=== PATIENT | female | born 1990 | race Caucasian/White ===

== ENCOUNTER → 2023-10-25 11:33 | Outpatient (REF) | payer BC, SELFPAY | LOC: PET 11:33 | PROVIDERS: ATTENDING PHYSICIAN Internal Medicine Hematology & Oncology | DX: C50.312 Malignant neoplasm of lower-inner quadrant of left female breast (principal) | CPT/HCPCS: 78815; A9552 ==

== ENCOUNTER → 2023-10-29 18:03 | Outpatient (REF) | payer BC, SELFPAY ==
--- NOTE | 2023-10-30 17:41 | CARDSERVLU ---
Echocardiogram with Lumason completed after protocol screening completed. Allergies verified.
Patent IV site: __RA___
IV site flushed with 0.9% NaCl pre and post administration.
Diluted bolus method utilized to enhance visualization of ventricular olvera.
Total volume given: __4__ mL
Patient tolerated all procedures well without complications.
== END ==
LOC: RCS 18:03
PROVIDERS: ATTENDING PHYSICIAN Internal Medicine Hematology & Oncology; FAMILY PHYSICIAN Physician Assistant
DX: Z51.11 Encounter for antineoplastic chemotherapy (principal)
CPT/HCPCS: 93306; Q9950

== ENCOUNTER → 2024-02-17 10:43 | Outpatient (REF) | payer BC, SELFPAY | LOC: PET 10:43 | PROVIDERS: ATTENDING PHYSICIAN Internal Medicine Hematology & Oncology | DX: C50.312 Malignant neoplasm of lower-inner quadrant of left female breast (principal) | CPT/HCPCS: 78815; A9552 ==

== ENCOUNTER → 2024-05-15 15:50 | Outpatient (REF) | payer BC, SELFPAY | LOC: RCS 15:50 | PROVIDERS: ATTENDING PHYSICIAN Internal Medicine Hematology & Oncology; FAMILY PHYSICIAN Physician Assistant | DX: C50.312 Malignant neoplasm of lower-inner quadrant of left female breast (principal); C79.51 Secondary malignant neoplasm of bone | CPT/HCPCS: 93306 ==

== ENCOUNTER → 2024-06-04 12:09 | Outpatient (REF) | payer BC, SELFPAY | LOC: PET 12:09 | PROVIDERS: ATTENDING PHYSICIAN Internal Medicine Hematology & Oncology | DX: C50.312 Malignant neoplasm of lower-inner quadrant of left female breast (principal); C78.00 Secondary malignant neoplasm of unspecified lung; C79.51 Secondary malignant neoplasm of bone | CPT/HCPCS: 78815; A9552 ==

== ENCOUNTER → 2024-06-26 13:39 | Outpatient (REF) | payer BC, SELFPAY | LOC: RAD 13:39 | PROVIDERS: ATTENDING PHYSICIAN Internal Medicine Hematology & Oncology; FAMILY PHYSICIAN Physician Assistant | DX: C50.312 Malignant neoplasm of lower-inner quadrant of left female breast (principal); F32.9 Major depressive disorder, single episode, unspecified; C79.51 Secondary malignant neoplasm of bone | CPT/HCPCS: 71275; Q9967 ==

== ENCOUNTER → 2024-07-03 10:14 | Outpatient (REF) | payer BC, SELFPAY ==
[2024-07-03 10:34] VITALS: BP 114/83; BP_SYST 99
[2024-07-03 11:24] VITALS: BP 95/65
[2024-07-03 11:41] LABS: Body Fluid Mononuclear 98.9 %; Body Fluid Polymorphonuclear 1.1 %; Body Fluid WBC 2438 /CUMM
[2024-07-03 12:02] LABS: Body Fluid Glucose 92 mg/dl; Body Fluid LDH 155 U/L; Body Fluid Protein 4.1 g/dl
[2024-07-03 12:11] LABS: Body Fluid Second Tech HB
== END ==
LOC: RADI 10:14
PROVIDERS: ATTENDING PHYSICIAN Internal Medicine Hematology & Oncology; FAMILY PHYSICIAN Physician Assistant
DX: C50.919 Malignant neoplasm of unspecified site of unspecified female breast (principal); J91.0 Malignant pleural effusion
CPT/HCPCS: 88305; 32555; 71045; 82945; 83615; 84157; 88112; 88341; 88342; 88360; 89051

== ENCOUNTER → 2024-07-09 10:15 | Outpatient (REF) | payer BC, SELFPAY ==
[2024-07-09 10:39] VITALS: BP 124/80; BP_SYST 107
[2024-07-09 11:02] VITALS: BP 90/46; BP_SYST 83
== END ==
LOC: RADI 10:15
PROVIDERS: ATTENDING PHYSICIAN Internal Medicine Hematology & Oncology; FAMILY PHYSICIAN Physician Assistant
DX: J90 Pleural effusion, not elsewhere classified (principal)
CPT/HCPCS: 88305; 32555; 71045; 88112; 88360

== ENCOUNTER → 2024-07-16 10:18 | Outpatient (REF) | payer BC, SELFPAY ==
[2024-07-16 10:25] VITALS: BP 111/89; BP_SYST 107
== END ==
LOC: RADI 10:18
PROVIDERS: ATTENDING PHYSICIAN Internal Medicine Hematology & Oncology; FAMILY PHYSICIAN Physician Assistant
DX: C80.1 Malignant (primary) neoplasm, unspecified (principal); J91.0 Malignant pleural effusion
CPT/HCPCS: 32555; 71045

== ENCOUNTER → 2024-08-06 10:25 | Outpatient (REF) | payer BC, SELFPAY ==
[2024-08-06 10:40] VITALS: BP 122/79; BP_SYST 110
[2024-08-06 11:00] VITALS: BP 96/69; BP_SYST 92
== END ==
LOC: RADI 10:25
PROVIDERS: ATTENDING PHYSICIAN Internal Medicine Hematology & Oncology; FAMILY PHYSICIAN Physician Assistant
DX: J90 Pleural effusion, not elsewhere classified (principal)
CPT/HCPCS: 32555; 71045

== ENCOUNTER → 2024-08-13 10:37 | Outpatient (REF) | payer BC, SELFPAY ==
[2024-08-13 10:58] VITALS: BP 113/98; BP_SYST 116
[2024-08-13 11:28] VITALS: BP 111/80
== END ==
LOC: RADI 10:37
PROVIDERS: ATTENDING PHYSICIAN Internal Medicine Hematology & Oncology; FAMILY PHYSICIAN Physician Assistant
DX: J90 Pleural effusion, not elsewhere classified (principal)
CPT/HCPCS: 32555; 71045

== ENCOUNTER → 2024-08-20 09:53 | Outpatient (REF) | payer BC, SELFPAY ==
[2024-08-20 10:25] VITALS: BP 103/79; BP_SYST 104
[2024-08-20 10:50] VITALS: BP 96/59; BP_SYST 105
== END ==
LOC: RADI 09:53
PROVIDERS: ATTENDING PHYSICIAN Internal Medicine Hematology & Oncology; FAMILY PHYSICIAN Physician Assistant
DX: J90 Pleural effusion, not elsewhere classified (principal)
CPT/HCPCS: 32555; 71045

== ENCOUNTER → 2024-08-31 10:04 | Outpatient (REF) | payer BC, SELFPAY ==
[2024-08-31 10:10] VITALS: BP 103/51; BP_SYST 110
[2024-08-31 10:37] VITALS: BP 95/71; BP_SYST 94
== END ==
LOC: RADI 10:04
PROVIDERS: ATTENDING PHYSICIAN Internal Medicine Hematology & Oncology; FAMILY PHYSICIAN Physician Assistant
DX: J90 Pleural effusion, not elsewhere classified (principal)
CPT/HCPCS: 32555; 71045

== ENCOUNTER → 2024-09-04 10:16 | Outpatient (REF) | payer BC, SELFPAY ==
[2024-09-04 10:25] VITALS: BP 103/71; BP_SYST 100
== END ==
LOC: RADI 10:16
PROVIDERS: ATTENDING PHYSICIAN Internal Medicine Hematology & Oncology; FAMILY PHYSICIAN Physician Assistant
DX: J90 Pleural effusion, not elsewhere classified (principal)
CPT/HCPCS: 32555; 71045

== ENCOUNTER → 2024-09-09 09:15 | Outpatient (REF) | payer BC, SELFPAY ==
[2024-09-09 09:25] VITALS: BP 105/78; BP_SYST 103
[2024-09-09 09:45] VITALS: BP 105/79; BP_SYST 79
[2024-09-09 10:12] VITALS: BP 105/79
== END ==
LOC: RADI 09:15
PROVIDERS: ATTENDING PHYSICIAN Internal Medicine Hematology & Oncology; FAMILY PHYSICIAN Physician Assistant
DX: J90 Pleural effusion, not elsewhere classified (principal)
CPT/HCPCS: 32555; 71045

== ENCOUNTER → 2024-09-15 10:07 | Outpatient (REF) | payer BC, SELFPAY ==
[2024-09-15 10:15] VITALS: BP 113/84; BP_SYST 109
[2024-09-15 10:37] VITALS: BP 111/73; BP_SYST 83
[2024-09-15 10:48] VITALS: BP 111/73
== END ==
LOC: RADI 10:07
PROVIDERS: ATTENDING PHYSICIAN Internal Medicine Hematology & Oncology
DX: J90 Pleural effusion, not elsewhere classified (principal)
CPT/HCPCS: 32555; 71045

== ENCOUNTER → 2024-09-23 12:54 | Outpatient (REF) | payer MEDICAID, SELFPAY ==
[2024-09-23 13:20] VITALS: BP 128/76; BP_SYST 100
[2024-09-23 13:45] VITALS: BP 110/75
== END ==
LOC: RADI 12:54
PROVIDERS: ATTENDING PHYSICIAN Internal Medicine Hematology & Oncology; FAMILY PHYSICIAN Family Medicine
DX: J90 Pleural effusion, not elsewhere classified (principal)
CPT/HCPCS: 32555; 71045

== ENCOUNTER → 2024-09-28 13:03 | Outpatient (REF) | payer MEDICAID, SELFPAY ==
[2024-09-28 13:14] VITALS: BP 118/63; BP_SYST 100
[2024-09-28 13:46] VITALS: BP 100/73
== END ==
LOC: RADI 13:03
PROVIDERS: ATTENDING PHYSICIAN Internal Medicine Hematology & Oncology; FAMILY PHYSICIAN Family Medicine
DX: J90 Pleural effusion, not elsewhere classified (principal)
CPT/HCPCS: 32555; 71045

== ENCOUNTER → 2024-10-02 12:44 | Outpatient (REF) | payer MEDICAID, SELFPAY ==
[2024-10-02 13:02] VITALS: BP 101/64; BP_SYST 89
[2024-10-02 13:28] VITALS: BP 100/68; BP_SYST 88
== END ==
LOC: RADI 12:44
PROVIDERS: ATTENDING PHYSICIAN Internal Medicine Hematology & Oncology; FAMILY PHYSICIAN Family Medicine
DX: J90 Pleural effusion, not elsewhere classified (principal)
CPT/HCPCS: 32555; 71045

== ENCOUNTER → 2024-10-05 11:03 | Outpatient (REF) | payer MEDICAID, SELFPAY ==
[2024-10-05 11:12] VITALS: BP 107/80; BP_SYST 70
[2024-10-05 11:50] VITALS: BP 99/71
== END ==
LOC: RADI 11:03
PROVIDERS: ATTENDING PHYSICIAN Internal Medicine Hematology & Oncology
DX: J90 Pleural effusion, not elsewhere classified (principal)
CPT/HCPCS: 32555; 71045

== ENCOUNTER → 2024-10-08 10:56 | Outpatient (REF) | payer MEDICAID, SELFPAY ==
[2024-10-08 11:00] VITALS: BP 115/76; BP_SYST 89
[2024-10-08 11:33] VITALS: BP 107/69; BP_SYST 91
== END ==
LOC: RADI 10:56
PROVIDERS: ATTENDING PHYSICIAN Internal Medicine Hematology & Oncology
DX: J90 Pleural effusion, not elsewhere classified (principal)
CPT/HCPCS: 32555; 71045

== ENCOUNTER → 2024-10-13 10:55 | Outpatient (REF) | payer MEDICAID, SELFPAY ==
[2024-10-13 11:00] VITALS: BP 107/66; BP_SYST 105
[2024-10-13 11:43] VITALS: BP 103/69
== END ==
LOC: RADI 10:55
PROVIDERS: ATTENDING PHYSICIAN Internal Medicine Hematology & Oncology
DX: J90 Pleural effusion, not elsewhere classified (principal)
CPT/HCPCS: 32555; 71045

== ENCOUNTER → 2024-10-16 11:02 | Outpatient (REF) | payer MEDICAID, SELFPAY ==
[2024-10-16 11:20] VITALS: BP 102/74; BP_SYST 92
[2024-10-16 11:37] VITALS: BP 105/72
== END ==
LOC: RADI 11:02
PROVIDERS: ATTENDING PHYSICIAN Internal Medicine Hematology & Oncology; FAMILY PHYSICIAN Family Medicine
DX: J90 Pleural effusion, not elsewhere classified (principal)
CPT/HCPCS: 32555; 71045

== ENCOUNTER → 2024-10-19 10:24 | Outpatient (REF) | payer MEDICAID, OTHER, SELFPAY ==
[2024-10-19 10:35] VITALS: BP 110/78; BP_SYST 89
[2024-10-19 10:50] VITALS: BP 99/68; BP_SYST 87
[2024-10-19 11:00] VITALS: BP 99/68
== END ==
LOC: RADI 10:24
PROVIDERS: ATTENDING PHYSICIAN Internal Medicine Hematology & Oncology; FAMILY PHYSICIAN Family Medicine
DX: J90 Pleural effusion, not elsewhere classified (principal)
CPT/HCPCS: 32555; 71045

== ENCOUNTER → 2024-10-23 10:23 | Outpatient (REF) | payer OTHER, MEDICAID, SELFPAY ==
[2024-10-23 10:42] VITALS: BP 112/76; BP_SYST 90
[2024-10-23 11:00] VITALS: BP 103/75
== END ==
LOC: RADI 10:23
PROVIDERS: ATTENDING PHYSICIAN Internal Medicine Hematology & Oncology; FAMILY PHYSICIAN Family Medicine
DX: J90 Pleural effusion, not elsewhere classified (principal)
CPT/HCPCS: 32555; 71045

== ENCOUNTER → 2024-10-26 10:53 | Outpatient (REF) | payer OTHER, MEDICAID, SELFPAY ==
[2024-10-26 11:05] VITALS: BP 121/71; BP_SYST 95
[2024-10-26 11:25] VITALS: BP 99/67; BP_SYST 88
[2024-10-26 11:35] VITALS: BP 99/67
[2024-10-26 11:40] VITALS: BP 99/67
== END ==
LOC: RADI 10:53
PROVIDERS: ATTENDING PHYSICIAN Internal Medicine Hematology & Oncology; FAMILY PHYSICIAN Family Medicine
DX: J90 Pleural effusion, not elsewhere classified (principal)
CPT/HCPCS: 32555; 71045

== ENCOUNTER → 2024-10-29 13:25 | Outpatient (REF) | payer OTHER, MEDICAID, SELFPAY ==
[2024-10-29 13:52] VITALS: BP 104/77; BP_SYST 87
[2024-10-29 14:10] VITALS: BP 96/68
== END ==
LOC: RADI 13:25
PROVIDERS: ATTENDING PHYSICIAN Internal Medicine Hematology & Oncology
DX: J90 Pleural effusion, not elsewhere classified (principal)
CPT/HCPCS: 32555; 71045

== ENCOUNTER → 2024-11-02 10:21 | Outpatient (REF) | payer OTHER, MEDICAID, SELFPAY ==
[2024-11-02 10:35] VITALS: BP 109/76; BP_SYST 94
[2024-11-02 10:50] VITALS: BP 101/67; BP_SYST 89
[2024-11-02 11:09] VITALS: BP 101/67
== END ==
LOC: RADI 10:21
PROVIDERS: ATTENDING PHYSICIAN Internal Medicine Hematology & Oncology; FAMILY PHYSICIAN Family Medicine
DX: J90 Pleural effusion, not elsewhere classified (principal)
CPT/HCPCS: 32555; 71045

== ENCOUNTER → 2024-11-05 10:27 | Outpatient (REF) | payer OTHER, MEDICAID, SELFPAY ==
[2024-11-05 10:43] VITALS: BP 115/73; BP_SYST 98
[2024-11-05 10:56] VITALS: BP 112/68
== END ==
LOC: RADI 10:27
PROVIDERS: ATTENDING PHYSICIAN Internal Medicine Hematology & Oncology; FAMILY PHYSICIAN Family Medicine
DX: J90 Pleural effusion, not elsewhere classified (principal)
CPT/HCPCS: 32555; 71045

== ENCOUNTER → 2024-11-09 11:08 | Outpatient (REF) | payer OTHER, MEDICAID, SELFPAY ==
[2024-11-09 11:20] VITALS: BP 112/82; BP_SYST 113
[2024-11-09 11:40] VITALS: BP 107/67
== END ==
LOC: RADI 11:08
PROVIDERS: ATTENDING PHYSICIAN Internal Medicine Hematology & Oncology
DX: J90 Pleural effusion, not elsewhere classified (principal)
CPT/HCPCS: 32555; 71045

== ENCOUNTER → 2024-11-12 10:49 | Outpatient (REF) | payer OTHER, MEDICAID, SELFPAY ==
[2024-11-12 11:10] VITALS: BP 98/56
[2024-11-12 11:20] VITALS: BP 97/75
== END ==
LOC: RADI 10:49
PROVIDERS: ATTENDING PHYSICIAN Internal Medicine Hematology & Oncology; FAMILY PHYSICIAN Family Medicine
DX: J90 Pleural effusion, not elsewhere classified (principal)
CPT/HCPCS: 32555; 71045

== ENCOUNTER → 2024-11-16 10:53 | Outpatient (REF) | payer OTHER, MEDICAID, SELFPAY ==
[2024-11-16 11:05] VITALS: BP 110/73; BP_SYST 96
== END ==
LOC: RADI 10:53
PROVIDERS: ATTENDING PHYSICIAN Internal Medicine Hematology & Oncology
DX: C80.1 Malignant (primary) neoplasm, unspecified (principal); J91.0 Malignant pleural effusion
CPT/HCPCS: 88305; 32555; 71045; 88112; 88341; 88360

== ENCOUNTER → 2024-11-18 16:55 | Outpatient (REF) | payer OTHER, MEDICAID, SELFPAY | LOC: RCS 16:55 | PROVIDERS: ATTENDING PHYSICIAN Internal Medicine Hematology & Oncology; FAMILY PHYSICIAN Family Medicine | DX: C50.312 Malignant neoplasm of lower-inner quadrant of left female breast (principal); Z92.21 Personal history of antineoplastic chemotherapy; C79.51 Secondary malignant neoplasm of bone | CPT/HCPCS: 93306 ==

== ENCOUNTER → 2024-11-19 11:00 | Outpatient (REF) | payer OTHER, MEDICAID, SELFPAY ==
[2024-11-19 11:26] VITALS: BP 102/69; BP_SYST 87
[2024-11-19 12:17] VITALS: BP 91/56
== END ==
LOC: RADI 11:00
PROVIDERS: ATTENDING PHYSICIAN Internal Medicine Hematology & Oncology; FAMILY PHYSICIAN Family Medicine
DX: J90 Pleural effusion, not elsewhere classified (principal)
CPT/HCPCS: 32555; 71045

== ENCOUNTER → 2024-11-24 07:07 | Outpatient (REF) | payer OTHER, MEDICAID, SELFPAY ==
[2024-11-24 07:25] VITALS: BP 116/66; BP_SYST 95
[2024-11-24 07:55] VITALS: BP 113/64; BP_SYST 96
[2024-11-24 08:06] VITALS: BP 113/64
== END ==
LOC: RADI 07:07
PROVIDERS: ATTENDING PHYSICIAN Internal Medicine Hematology & Oncology; FAMILY PHYSICIAN Family Medicine
DX: J90 Pleural effusion, not elsewhere classified (principal); Z85.3 Personal history of malignant neoplasm of breast
CPT/HCPCS: 32555; 71045

== ENCOUNTER → 2024-11-27 06:52 | Outpatient (REF) | payer OTHER, MEDICAID, SELFPAY ==
[2024-11-27 07:05] VITALS: BP 120/62; BP_SYST 84
[2024-11-27 07:45] VITALS: BP 104/71; BP_SYST 88
== END ==
LOC: RADI 06:52
PROVIDERS: ATTENDING PHYSICIAN Internal Medicine Hematology & Oncology; FAMILY PHYSICIAN Family Medicine
DX: J90 Pleural effusion, not elsewhere classified (principal)
CPT/HCPCS: 32555; 71045

== ENCOUNTER → 2024-11-30 06:52 | Outpatient (REF) | payer OTHER, MEDICAID, SELFPAY ==
[2024-11-30 07:18] VITALS: BP 125/77; BP_SYST 89
[2024-11-30 07:33] VITALS: BP 112/77; BP_SYST 91
[2024-11-30 07:42] VITALS: BP 112/77
== END ==
LOC: RADI 06:52
PROVIDERS: ATTENDING PHYSICIAN Internal Medicine Hematology & Oncology; FAMILY PHYSICIAN Family Medicine
DX: J90 Pleural effusion, not elsewhere classified (principal)
CPT/HCPCS: 32555; 71045

== ENCOUNTER → 2024-12-03 07:04 | Outpatient (REF) | payer OTHER, MEDICAID, SELFPAY ==
[2024-12-03 07:35] VITALS: BP 119/73; BP_SYST 87
[2024-12-03 07:50] VITALS: BP 110/72
== END ==
LOC: RADI 07:04
PROVIDERS: ATTENDING PHYSICIAN Internal Medicine Hematology & Oncology
DX: J90 Pleural effusion, not elsewhere classified (principal)
CPT/HCPCS: 32555; 71045

== ENCOUNTER → 2024-12-07 06:51 | Outpatient (REF) | payer OTHER, MEDICAID, SELFPAY ==
[2024-12-07 07:12] VITALS: BP 116/85; BP_SYST 86
[2024-12-07 07:34] VITALS: BP 108/74; BP_SYST 89
[2024-12-07 07:53] VITALS: BP 108/74
== END ==
LOC: RADI 06:51
PROVIDERS: ATTENDING PHYSICIAN Internal Medicine Hematology & Oncology; FAMILY PHYSICIAN Family Medicine
DX: J90 Pleural effusion, not elsewhere classified (principal)
CPT/HCPCS: 32555; 71045

== ENCOUNTER → 2024-12-11 06:57 | Outpatient (REF) | payer BC, OTHER, SELFPAY ==
[2024-12-11 07:18] VITALS: BP 111/75; BP_SYST 99
[2024-12-11 07:32] VITALS: BP 106/57
== END ==
LOC: RADI 06:57
PROVIDERS: ATTENDING PHYSICIAN Internal Medicine Hematology & Oncology
DX: J90 Pleural effusion, not elsewhere classified (principal)
CPT/HCPCS: 32555; 71045

== ENCOUNTER → 2024-12-14 06:59 | Outpatient (REF) | payer BC, OTHER, SELFPAY ==
[2024-12-14 07:19] VITALS: BP 111/76; BP_SYST 93
== END ==
LOC: RADI 06:59
PROVIDERS: ATTENDING PHYSICIAN Internal Medicine Hematology & Oncology
DX: J90 Pleural effusion, not elsewhere classified (principal)
CPT/HCPCS: 32555; 71045

== ENCOUNTER → 2024-12-17 07:11 | Outpatient (REF) | payer BC, OTHER, SELFPAY ==
[2024-12-17 07:25] VITALS: BP 111/77; BP_SYST 90
[2024-12-17 07:42] VITALS: BP 102/69; BP_SYST 88
[2024-12-17 07:52] VITALS: BP 102/69
== END ==
LOC: RADI 07:11
PROVIDERS: ATTENDING PHYSICIAN Internal Medicine Hematology & Oncology
DX: J90 Pleural effusion, not elsewhere classified (principal)
CPT/HCPCS: 32555; 71045

== ENCOUNTER → 2024-12-21 06:58 | Outpatient (REF) | payer BC, OTHER, SELFPAY ==
[2024-12-21 07:12] VITALS: BP 110/71; BP_SYST 96
[2024-12-21 07:33] VITALS: BP 110/75
== END ==
LOC: RADI 06:58
PROVIDERS: ATTENDING PHYSICIAN Internal Medicine Hematology & Oncology
DX: J90 Pleural effusion, not elsewhere classified (principal)
CPT/HCPCS: 32555; 71045

== ENCOUNTER → 2024-12-24 07:07 | Outpatient (REF) | payer BC, OTHER, SELFPAY ==
[2024-12-24 07:25] VITALS: BP 103/74; BP_SYST 86
[2024-12-24 07:50] VITALS: BP 104/62
== END ==
LOC: RADI 07:07
PROVIDERS: ATTENDING PHYSICIAN Internal Medicine Hematology & Oncology
DX: J90 Pleural effusion, not elsewhere classified (principal)
CPT/HCPCS: 32555; 71045

== ENCOUNTER → 2024-12-28 07:08 | Outpatient (REF) | payer BC, OTHER, SELFPAY ==
[2024-12-28 07:10] VITALS: BP 123/80; BP_SYST 85
[2024-12-28 07:40] VITALS: BP 109/74; BP_SYST 80
[2024-12-28 07:48] VITALS: BP 109/74
== END ==
LOC: RADI 07:08
PROVIDERS: ATTENDING PHYSICIAN Internal Medicine Hematology & Oncology
DX: J90 Pleural effusion, not elsewhere classified (principal)
CPT/HCPCS: 32555; 71045

== ENCOUNTER → 2024-12-31 06:59 | Outpatient (REF) | payer BC, OTHER, SELFPAY ==
[2024-12-31 07:14] VITALS: BP 111/74; BP_SYST 85
[2024-12-31 07:38] VITALS: BP 108/73
== END ==
LOC: RADI 06:59
PROVIDERS: ATTENDING PHYSICIAN Internal Medicine Hematology & Oncology; FAMILY PHYSICIAN Physician Assistant
DX: J90 Pleural effusion, not elsewhere classified (principal)
CPT/HCPCS: 32555; 71045

== ENCOUNTER → 2025-01-04 06:54 | Outpatient (REF) | payer BC, OTHER, SELFPAY ==
[2025-01-04 07:10] VITALS: BP 120/77; BP_SYST 93
[2025-01-04 07:30] VITALS: BP 101/72; BP_SYST 78
[2025-01-04 07:37] VITALS: BP 101/72
== END ==
LOC: RADI 06:54
PROVIDERS: ATTENDING PHYSICIAN Internal Medicine Hematology & Oncology; FAMILY PHYSICIAN Physician Assistant
DX: J90 Pleural effusion, not elsewhere classified (principal); R06.02 Shortness of breath
CPT/HCPCS: 32555; 71045

== ENCOUNTER → 2025-01-07 07:04 | Outpatient (REF) | payer OTHER, SELFPAY ==
[2025-01-07 07:35] VITALS: BP 103/70; BP_SYST 84
[2025-01-07 08:15] VITALS: BP 96/70
== END ==
LOC: RADI 07:04
PROVIDERS: ATTENDING PHYSICIAN Internal Medicine Hematology & Oncology; FAMILY PHYSICIAN Physician Assistant
DX: J90 Pleural effusion, not elsewhere classified (principal); R06.00 Dyspnea, unspecified
CPT/HCPCS: 32555; 71045

== ENCOUNTER → 2025-01-11 07:01 | Outpatient (REF) | payer OTHER, SELFPAY ==
[2025-01-11 07:21] VITALS: BP 113/73; BP_SYST 79
[2025-01-11 08:05] VITALS: BP 113/73
== END ==
LOC: RADI 07:01
PROVIDERS: ATTENDING PHYSICIAN Internal Medicine Hematology & Oncology
DX: J90 Pleural effusion, not elsewhere classified (principal); Z85.3 Personal history of malignant neoplasm of breast
CPT/HCPCS: 32555; 71045

== ENCOUNTER → 2025-01-14 07:05 | Outpatient (REF) | payer OTHER, SELFPAY ==
[2025-01-14 07:31] VITALS: BP 107/67; BP_SYST 87
[2025-01-14 08:13] VITALS: BP 103/75
== END ==
LOC: RADI 07:05
PROVIDERS: ATTENDING PHYSICIAN Internal Medicine Hematology & Oncology; FAMILY PHYSICIAN Physician Assistant
DX: J90 Pleural effusion, not elsewhere classified (principal)
CPT/HCPCS: 32555; 71045

== ENCOUNTER → 2025-01-21 06:59 | Outpatient (REF) | payer BC, OTHER, SELFPAY ==
[2025-01-21 07:08] VITALS: BP 122/77; BP_SYST 90
[2025-01-21 07:26] VITALS: BP 108/73; BP_SYST 87
[2025-01-21 07:40] VITALS: BP 108/73
== END ==
LOC: RADI 06:59
PROVIDERS: ATTENDING PHYSICIAN Internal Medicine Hematology & Oncology
DX: J90 Pleural effusion, not elsewhere classified (principal)
CPT/HCPCS: 32555; 71045

== ENCOUNTER → 2025-01-25 07:00 | Outpatient (REF) | payer BC, OTHER, SELFPAY ==
[2025-01-25 07:12] VITALS: BP 113/76; BP_SYST 85
== END ==
LOC: RADI 07:00
PROVIDERS: ATTENDING PHYSICIAN Internal Medicine Hematology & Oncology
DX: J90 Pleural effusion, not elsewhere classified (principal); Z53.8 Procedure and treatment not carried out for other reasons
CPT/HCPCS: 76604

== ENCOUNTER → 2025-01-28 07:00 | Outpatient (REF) | payer BC, OTHER, SELFPAY ==
[2025-01-28 07:40] VITALS: BP 107/64; BP_SYST 98
[2025-01-28 08:35] VITALS: BP 107/64; BP_SYST 98
== END ==
LOC: RADI 07:00
PROVIDERS: ATTENDING PHYSICIAN Internal Medicine Hematology & Oncology; FAMILY PHYSICIAN Physician Assistant
DX: J90 Pleural effusion, not elsewhere classified (principal)
CPT/HCPCS: 32555; 71045

== ENCOUNTER → 2025-02-01 07:05 | Outpatient (REF) | payer BC, OTHER, SELFPAY ==
[2025-02-01 07:20] VITALS: BP 118/89; BP_SYST 84
[2025-02-01 07:38] VITALS: BP 104/64; BP_SYST 83
[2025-02-01 07:40] VITALS: BP 104/64; BP_SYST 83
[2025-02-01 07:55] VITALS: BP 104/64
== END ==
LOC: RADI 07:05
PROVIDERS: ATTENDING PHYSICIAN Internal Medicine Hematology & Oncology; FAMILY PHYSICIAN Physician Assistant
DX: J90 Pleural effusion, not elsewhere classified (principal)
CPT/HCPCS: 32555; 71045

== ENCOUNTER → 2025-02-11 07:21 | Outpatient (REF) | payer BC, OTHER, SELFPAY ==
[2025-02-11 07:44] VITALS: BP 118/74; BP_SYST 85
[2025-02-11 08:00] VITALS: BP 101/66
== END ==
LOC: RADI 07:21
PROVIDERS: ATTENDING PHYSICIAN Internal Medicine Hematology & Oncology; FAMILY PHYSICIAN Physician Assistant
DX: J90 Pleural effusion, not elsewhere classified (principal)
CPT/HCPCS: 32555; 71045

== ENCOUNTER → 2025-02-18 07:01 | Outpatient (REF) | payer BC, OTHER, SELFPAY ==
[2025-02-18 07:13] VITALS: BP 120/77; BP_SYST 92
[2025-02-18 07:36] VITALS: BP 115/77
== END ==
LOC: RADI 07:01
PROVIDERS: ATTENDING PHYSICIAN Internal Medicine Hematology & Oncology; FAMILY PHYSICIAN Physician Assistant
DX: J90 Pleural effusion, not elsewhere classified (principal)
CPT/HCPCS: 32555; 71045

== ENCOUNTER → 2025-02-25 07:04 | Outpatient (REF) | payer BC, OTHER, SELFPAY ==
[2025-02-25 07:40] VITALS: BP 93/80; BP_SYST 78
[2025-02-25 08:05] VITALS: BP 108/74
== END ==
LOC: RADI 07:04
PROVIDERS: ATTENDING PHYSICIAN Internal Medicine Hematology & Oncology; FAMILY PHYSICIAN Physician Assistant
DX: J90 Pleural effusion, not elsewhere classified (principal); Z85.3 Personal history of malignant neoplasm of breast
CPT/HCPCS: 32555; 71045

== ENCOUNTER → 2025-03-04 06:55 | Outpatient (REF) | payer BC, OTHER, SELFPAY ==
[2025-03-04 07:38] VITALS: BP 97/62; BP_SYST 85
[2025-03-04 07:50] VITALS: BP 92/65
== END ==
LOC: RADI 06:55
PROVIDERS: ATTENDING PHYSICIAN Internal Medicine Hematology & Oncology; FAMILY PHYSICIAN Physician Assistant
DX: J90 Pleural effusion, not elsewhere classified (principal)
CPT/HCPCS: 32555; 71045

== ENCOUNTER → 2025-03-06 09:02 | Outpatient (REF) | payer BC, OTHER, SELFPAY | LOC: RCS 09:02 | PROVIDERS: ATTENDING PHYSICIAN Internal Medicine Hematology & Oncology; FAMILY PHYSICIAN Physician Assistant | DX: R06.02 Shortness of breath (principal); R22.1 Localized swelling, mass and lump, neck; C50.312 Malignant neoplasm of lower-inner quadrant of left female breast; F32.9 Major depressive disorder, single episode, unspecified; C79.51 Secondary malignant neoplasm of bone; C78.00 Secondary malignant neoplasm of unspecified lung; R06.00 Dyspnea, unspecified; Z92.21 Personal history of antineoplastic chemotherapy; N95.1 Menopausal and female climacteric states | CPT/HCPCS: 93306 ==

== ENCOUNTER → 2025-03-11 06:57 | Outpatient (REF) | payer BC, OTHER, SELFPAY ==
[2025-03-11 07:18] VITALS: BP 108/80; BP_SYST 86
[2025-03-11 07:38] VITALS: BP 107/75
== END ==
LOC: RADI 06:57
PROVIDERS: ATTENDING PHYSICIAN Internal Medicine Hematology & Oncology
DX: J90 Pleural effusion, not elsewhere classified (principal)
CPT/HCPCS: 32555; 71045

== ENCOUNTER → 2025-03-18 07:04 | Outpatient (REF) | payer BC, OTHER, SELFPAY ==
[2025-03-18 07:30] VITALS: BP 119/84; BP_SYST 122
[2025-03-18 07:52] VITALS: BP 111/83
== END ==
LOC: RADI 07:04
PROVIDERS: ATTENDING PHYSICIAN Internal Medicine Hematology & Oncology
DX: J90 Pleural effusion, not elsewhere classified (principal)
CPT/HCPCS: 32555; 71045